=== PATIENT | male | born 1965 | race African-American/Black ===

== ENCOUNTER 2017-01-09 15:07 | Emergency (ER) | payer MEDICAID ==
[~2017-01-09] VITALS: Ht 180.3 cm; Wt 154.6 kg
[~2017-01-09 15:07] MED LIST: ALLO300T PO; AMLO10TA2 PO; ASPI-496 PO; DIVA500T2 PO; DULO30CA2 PO; LISI40TA PO
[2017-01-09] MEDS ORDERED: SODIUM CHLORIDE 0.9% 1,000 ML IV ONE (15:20)
[2017-01-09] MEDS ORDERED: SODIUM CHLORIDE FLUSH 10ML SYR IVF ONE (15:30)
[2017-01-09 15:50] LABS: ASPARTATE AMINO TRANSFERASE 34 U/L (15-37); BLOOD UREA NITROGEN 14 mg/dL (7-18)
[2017-01-09 15:55] LABS: IS PT STATUS REG ER OR PRE ER? YES
[2017-01-09 17:32] VITALS: BP 158/95
== END 2017-01-09 17:34 | disposition home or self-care (01) ==
LOC: ED 17:28
DX: J45.20 Mild intermittent asthma, uncomplicated (principal); F12.10 Cannabis abuse, uncomplicated; R06.00 Dyspnea, unspecified; I10 Essential (primary) hypertension; Z79.82 Long term (current) use of aspirin; F31.9 Bipolar disorder, unspecified
CPT/HCPCS: 36415; 71020; 80053; 83880; 84484; 85025; 85379; 93005

== ENCOUNTER 2017-01-10 07:38 | Emergency (ER) | payer MEDICAID ==
[~2017-01-10] VITALS: Ht 180.3 cm; Wt 153.0 kg
[2017-01-10 07:40] VITALS: BP 181/117
[2017-01-10] MEDS ORDERED: SODIUM CHLORIDE FLUSH 10ML SYR IVF ONE (08:30)
[2017-01-10] MEDS ORDERED: ASPIRIN 81 MG TABLET CHEW PO ONE (08:30)
[2017-01-10] MEDS ORDERED: ASPIRIN 81 MG TABLET CHEW ONE (08:34)
[2017-01-10 09:10] LABS: BLOOD UREA NITROGEN 10 mg/dL (7-18)
[2017-01-10 09:18] LABS: IS PT STATUS REG ER OR PRE ER? YES
[2017-01-10] MEDS ORDERED: MORPHINE SULFATE 4 MG/ML, 1ML ONE (10:04)
[2017-01-10] MEDS ORDERED: ONDANSETRON 2MG/ML, 2ML ONE (10:04)
== END 2017-01-10 10:38 | disposition home or self-care (01) ==
LOC: ED 08:11
DX: R07.2 Precordial pain (principal); R06.00 Dyspnea, unspecified; F41.1 Generalized anxiety disorder; J45.909 Unspecified asthma, uncomplicated; I10 Essential (primary) hypertension; E11.9 Type 2 diabetes mellitus without complications
CPT/HCPCS: 36415; 80048; 82040; 83880; 84484; 85025; 93005; 99285